=== PATIENT | male | born 1970 | race Caucasian/White ===

== ENCOUNTER 2024-02-13 11:55 | Emergency (ER) | payer BC ==
[~2024-02-13] VITALS: Ht 177.8 cm; Wt 124.0 kg
[2024-02-13 12:07] VITALS: BP 140/83; PULSE 75; RESP 16; O2SAT 98
[2024-02-13] MEDS ORDERED: ACETAMINOPHEN 325MG TABLET PO ONE (15:00)
[2024-02-13] MEDS ORDERED: TOPUD MT (16:37)
[2024-02-13] MEDS ORDERED: IBUP-1525 MT (16:37)
[2024-02-13 17:23] VITALS: TEMP 98.5
[2024-02-13] MEDS: ACETAMINOPHEN 325MG TABLET PO NR (17:23)
== END 2024-02-13 17:24 | disposition home or self-care (01) ==
LOC: ER 11:55
DX: S01.511A Laceration without foreign body of lip, initial encounter (principal); E11.9 Type 2 diabetes mellitus without complications; E78.00 Pure hypercholesterolemia, unspecified; I10 Essential (primary) hypertension; Z98.890 Other specified postprocedural states; W18.39XA Other fall on same level, initial encounter; Y93.89 Activity, other specified; Y92.89 Other specified places as the place of occurrence of the external cause; Y99.8 Other external cause status
CPT/HCPCS: 72110; 73090; 73130; 99284